=== PATIENT | female | born 1945 | race Caucasian/White ===

== ENCOUNTER → 2019-11-24 14:28 | Outpatient (BNVA) | payer MEDICARE, BC, SELFPAY | PROVIDERS: Family Provider Family Medicine; PCP Family Medicine; Visit Provider Family Medicine | DX: E03.9 Hypothyroidism, unspecified (principal); M54.5 Low back pain; E78.2 Mixed hyperlipidemia; F90.9 Attention-deficit hyperactivity disorder, unspecified type; J30.2 Other seasonal allergic rhinitis; F90.0 Attention-deficit hyperactivity disorder, predominantly inattentive type; M19.90 Unspecified osteoarthritis, unspecified site; G47.00 Insomnia, unspecified | CPT/HCPCS: 84439; 84443; 84481 ==

== ENCOUNTER → 2020-05-19 18:00 | Outpatient (BNVA) | payer MEDICARE, BC, SELFPAY | PROVIDERS: Family Provider Family Medicine; PCP Family Medicine; Visit Provider Family Medicine | DX: Z13.1 Encounter for screening for diabetes mellitus (principal); E03.9 Hypothyroidism, unspecified; E78.2 Mixed hyperlipidemia | CPT/HCPCS: 80053; 80061; 84439; 84443; 84481 ==

== ENCOUNTER → 2020-06-14 16:53 | Outpatient (BNVA) | payer MEDICARE, BC, SELFPAY | PROVIDERS: Family Provider Family Medicine; PCP Family Medicine; Visit Provider Nurse Practitioner Family | DX: M16.12 Unilateral primary osteoarthritis, left hip (principal); M25.552 Pain in left hip | CPT/HCPCS: 73502 ==

== ENCOUNTER → 2020-07-05 17:06 | Outpatient (BNVA) | payer MEDICARE, BC, SELFPAY | PROVIDERS: Family Provider Family Medicine; PCP Family Medicine; Visit Provider Dermatology | DX: D48.9 Neoplasm of uncertain behavior, unspecified (principal) | CPT/HCPCS: 88304 ==

== ENCOUNTER 2020-11-19 13:17 | Emergency (ER) | payer MEDICARE, BC, SELFPAY ==
[2020-11-19 13:38] VITALS: BP 143/74; PULSE 101; RESP 18; TEMP 38.7; O2SAT 96; BMI 32.3
[2020-11-19 15:03] VITALS: BP 115/70; PULSE 91; RESP 16; O2SAT 97
--- NOTE | 2020-11-19 15:23 | XR_ITS ---
WS: [id number] XR chest 2V* [id number] REASON FOR EXAM: fever, SOB FINDINGS: Moderate tortuosity the thoracic aorta without aneurysmal dilatation. Normal heart size. Calcified granulomatous changes in both hemithoraces. No active pulmonary parenchymal or pleural disease. Mild changes of degenerative spondylosis in the mid and lower thoracic spine. XR/XR chest 2V* [id number] IMPRESSION: No acute chest abnormality identified.
[2020-11-19 16:35] LABS: Basophils # 0.1 10^3/uL (0.0-0.1); Basophils % 0.4 %; Hematocrit 35.2 % (37.0-47.0); Hemoglobin 11.2 g/dL (11.5-15.3); Lymphocytes # 1.4 10^3/uL (0.8-4.8); Lymphocytes % 10.8 %; Mean Corpuscular HGB Conc 31.8 g/dL (30.0-36.0); Mean Corpuscular Hemoglobin 28.4 pg (28.0-34.0); Mean Corpuscular Volume 89.1 fL (81-99); Mean Platelet Volume 9.3 fL (7.4-10.4); Monocytes # 0.5 10^3/uL (0.2-0.9); Monocytes % 3.8 %; Neutrophils % 84.1 %; Nucleated Red Blood Cells % 0 %; Platelet Count 480 10^3/cmm (130-400); Red Blood Count 3.95 10^6/uL (4.1-5.3); Red Cell Distribution Width 14.1 % (12.1-15.1); White Blood Count 12.8 10^3/uL (4.0-10.0)
[2020-11-19 16:57] VITALS: BP 112/63; PULSE 91; RESP 16; O2SAT 94
[2020-11-19 17:03] LABS: Procalcitonin 0.15 ng/mL (0-0.5); Thyroid Stimulating Hormone 2.53 uIU/mL (0.27-4.20)
[2020-11-19 17:15] LABS: Alanine Aminotransferase 55 U/L (0-33); Albumin Level 2.5 g/dL (3.5-5.2); Alkaline Phosphatase 191 IU/L (35-105); Anion Gap 17.3 (5-19); Aspartate Amino Transferase 32 U/L (0-32); Blood Urea Nitrogen 10 mg/dL (8-23); Calcium 8.4 mg/dL (8.5-10.5); Carbon Dioxide 22 mmol/L (22-29); Chloride 98 mmol/L (98-107); Creatine Phosphokinase 28 U/L (26-192); Globulin 3.9 g/dL (1.3-4.6); Glucose 131 mg/dL (65-115); Osmolality Calculated 277 mOsm/kg (285-295); Potassium 4.3 mmol/L (3.5-5.1); Sodium 133 mmol/L (136-145); Total Bilirubin 0.5 mg/dL (0.15-1.2); Total Protein 6.4 g/dL (6.6-8.7)
[2020-11-19 17:29] LABS: Erythrocyte Sedimentation Rate 101 mm/hr (0-15)
[2020-11-19 17:47] LABS: Blood Urine Neg (Negative); Glucose Urine UA Norm (Normal); Ketones Urine 2+ (Negative); Nitrate Urine Negative (Negative); Protein Urine Neg (Negative); Specific Gravity, Urine 1.015 (1.005-1.030); Urine Appearance Clear (CLEAR); Urine Color Yellow (Yellow); pH Urine 5 (5-7)
[2020-11-19 17:48] VITALS: BP 114/69; PULSE 86; RESP 14; O2SAT 94
[2020-11-19 17:48] LABS: Add Urine Microscopic? YES; Bilirubin Urine 1+ (Negative); Leukocyte Esterase Urine 2+ (Negative); Urobilinogen Urine 4 mg/dL (Negative); WBC Urine 55-80 /hpf (0-5)
[2020-11-19 17:50] LABS: Squamous Epithelial Cell Urine 0-4 /hpf (0-5)
[2020-11-19 17:51] LABS: Add Urine Culture? Yes; Bacteria Urine 3+ /hpf; Mucus Urine TRACE /hpf
--- NOTE | 2020-11-19 18:05 | ED_ITS ---
HPI - General Adult General: Chief complaint: General Medical Stated complaint: SICK ALL OVER SINCE S YULIYA Time Seen by Provider: 11/19/20 14:55 Source: patient Mode of arrival: ambulatory Limitations: no limitations History of Present Illness: HPI narrative: Patient is a 74-year-old female who presents to the emergency department with complaints of not feeling well for about 3 months. She states that her symptoms started with swelling of her knuckles on both hands, weakness and pain in both lower extremities especially her thighs, difficulty walking because of pain. She has also had intermittent fever. She denies any weight loss. She has some cough. Because her symptoms are not improving she decided to come to the emergency department to be evaluated. Onset (ago): month(s) (3) Associated symptoms: Reports malaise; Deny dyspnea, headache(s), nausea, rash, palpitations or vomiting Review of Systems General: Reports: 10 or more systems reviewed and unremarkable except in HPI and below Const: Reports: fever(s), body aches and malaise; Denies: chills Eyes: Denies: change in vision or blurry vision ENMT: Denies: throat pain, enlarged tonsils, odynophagia, hoarseness, mouth pain or swelling of lips/tongue Card: Denies: palpitations, irregular heart rhythm, edema or swelling of feet/ankles Resp: Denies: dyspnea, productive cough or non-productive cough GI: Denies: abdominal pain, nausea or vomiting : Denies: flank pain, difficulty voiding, dysuria, urinary frequency, urinary urgency or urinary hesitancy Musc: Reports: joint pain and joint swelling; Denies: neck pain, back pain or extremity swelling Skin/Breast: Denies: rash, pruritus or erythema Neuro: Denies: headache(s), numbness in extremities or weakness in extremities Endo: Denies: polyuria, polydipsia or tired all the time PFS ED PFSH: Medical History ADHD Mild ADHD since childhood benefited by SSRI Chronic osteoarthritis Hypothyroidism Insomnia Lumbar back pain Mixed hyperlipidemia Seasonal allergies Surgical History S/P cholecystectomy Family History Family/Other Cancer PROSTATE Diabetes Brother Diabetes Mother Diabetes Social History Smoking and tobacco status: former smoker Alcohol intake: never Desire information about alcohol rehabilitation?: No Desire information about substance/drug rehabilitation?: No History of recent travel: No Sexually active: Yes Current gender identity: Male Female Reproductive History: Spontaneous abortions: No Physical Exam Const: COMMON NORMALS: no acute distress, average body habitus, patient oriented x3, no limitations, healthy appearing, alert and well nourished HENMT: COMMON NORMALS: normocephalic, atraumatic and moist oral mucous membranes HEAD & SCALP: normocephalic and atraumatic Eye: COMMON NORMALS: Equal, round and reactive pupils present, EOMs intact bilaterally, conjunctivae normal and no scleral icterus CONJUNCTIVA: Yes conjunctivae normal PUPIL: Yes Equal, round and reactive pupils present Neck/C-Spine: COMMON NORMALS: full ROM, supple, no meningeal signs, no JVD and No carotid bruits Resp: COMMON NORMALS: normal respiratory effort, No retractions, No use of accessory muscles, clear to auscultation bilaterally and percussion normal AUSCULTATION: clear to auscultation bilaterally PERCUSSION: percussion normal Cardio: COMMON NORMALS: no JVD, regular rate, regular rhythm, S1 normal heart sound present, S2 normal heart sound present, No gallops present (Cardio), No clicks present (Cardio), No murmurs present (Cardio), No rub (Cardio) and Pe ripheral pulses 2+ throughout RATE: regular rate RHYTHM: regular rhythm HEART SOUNDS: S1 normal heart sound present and S2 normal heart sound present PERIPHERAL PULSES: Peripheral pulses 2+ throughout GI: COMMON NORMALS: Normal to inspection, nondistended, normoactive bowel sounds present, Soft to palpation, non-tender, No hepatosplenomegaly present, no masses and no bruits PALPATION: Yes Soft to palpation and Yes No hepatosplenomegaly present Extremity: COMMON NORMALS: normal to inspection, full ROM, capillary refill normal, no calf tenderness and no pedal edema Neuro: COMMON NORMALS: patient oriented x3 SENSORIUM/ORIENTATION: Yes alert MENINGEAL SIGNS: Yes no meningeal signs Skin: COMMON NORMALS: no rashes or lesions noted, no wounds, turgor normal, no jaundice, no petechiae and no mottling GENERAL SKIN EXAM: no rashes or lesions noted and turgor normal Course Reevaluation(s): Reevaluation #1: Discussed her lab and imaging findings with her. Explained to her urinalysis is consistent with a UTI and that may be responsible for some of her symptoms. However I explained to her that her inflammatory markers are significantly elevated and she may have a rheumatologic disease and I would like for her to be evaluated by storage worker especially as she had swelling of her MCPs. She is given a dose of intravenous ceftriaxone in the emergency department and discharged home with a prescription for Augmentin for UTI. She will be contacted to schedule an appointment with a storage worker by the [employer]. She voiced understanding and is in agreement with the plan. Time: 18:06 Vital Signs: Vital signs: Vital Signs Temperature 101.6 F H 11/19/20 13:38 Pulse Rate 86 11/19/20 17:48 Respiratory Rate 14 11/19/20 17:48 Blood Pressure 114/69 11/19/20 17:48 Pulse Oximetry 94 11/19/20 17:48 MDM - General Adult MDM Narrative: Medical decision making narrative: Patient with a 3-month hist ory of feeling unwell. She does have some pain and swelling of her small joints concerning for rheumatologic illness. Her inflammatory markers are significantly elevated. She has a UTI on evaluation in the emergency department. She is discharged home with a prescription for Augmentin call is to follow-up with a storage worker for further evaluation and management. Case management referral done for an appointment with rheumatology. Medical Records: Attestation: I reviewed the patient's medical records. Lab Data: Attestation: I reviewed the patient's lab results. Labs: Lab Results 11/19/20 11/19/20 11/19/20 Range/Units 16:25 16:25 16:25 WBC 12.8 H (4.0-10.0) 10^3/ uL RBC 3.95 L (4.1-5.3) 10^6/u L Hgb 11.2 L (11.5-15.3) g/dL Hct 35.2 L (37.0-47.0) % MCV 89.1 (81-99) fL MCH 28.4 (28.0-34.0) pg MCHC 31.8 (30.0-36.0) g/dL RDW 14.1 (12.1-15.1) % Plt Count 480 H (130-400) 10^3/c mm MPV 9.3 (7.4-10.4) fL Neut % (Auto) 84.1 % Lymph % (Auto) 10.8 % Bullitt % (Auto) 3.8 % Eos % (Auto) 0.0 % Baso % (Auto) 0.4 % Neut # (Auto) 10.80 H (1.8-7.7) 10^3/u L Lymph # (Auto) 1.4 (0.8-4.8) 10^3/u L Bullitt # (Auto) 0.5 (0.2-0.9) 10^3/u L Eos # (Auto) 0.0 (0.0-0.8) 10^3/u L Baso # (Auto) 0.1 (0.0-0.1) 10^3/u L Nucleated RBC % (a uto) 0 % Nucleated RBCs # 0.0 /100WBC ESR 101 H (0-15) mm/hr Sodium 133 L (136-145) mmol/L Potassium 4.3 (3.5-5.1) mmol/L Chloride 98 (98-107) mmol/L Carbon Dioxide 22 (22-29) mmol/L Anion Gap 17.3 (5-19) BUN 10 (8-23) mg/dL Creatinine 0.6 (0.5-0.9) mg/dL GFR Calculation Not Reportable Glucose 131 H (65-115) mg/dL Calculated Osmolal ity 277 L (285-295) mOsm/k g Calcium 8.4 L (8.5-10.5) mg/dL Total Bilirubin 0.5 (0.15-1.2) mg/dL AST 32 (0-32) U/L ALT 55 H (0-33) U/L Alkaline Phosphata se 191 H (35-105) IU/L Creatine Kinase 28 (26-192) U/L C-Reactive Protein 115.0 H (0.0-4.9) mg/L Total Protein 6.4 L (6.6-8.7) g/dL Albumin 2.5 L (3.5-5.2) g/dL Globulin 3.9 (1.3-4.6) g/dL Procalcitonin 0.15 (0-0.5) ng/mL TSH 2.53 (0.27-4.20) uIU/ mL Urine Color (Yellow) Urine Appearance (CLEAR) Urine pH (5-7) Ur Specific Gravit y (1.005-1.030) Urine Protein (Negative) Urine Glucose (UA) (Normal) Urine Ketones (Negative) Urine Blood (Negative) Urine Nitrate (Negative) Urine Bilirubin (Negative) Urine Urobilinogen (Negative) mg/dL Ur Leukocyte Kristin ase (Negative) Urine RBC (0-2) /hpf Urine WBC (0-5) /hpf Ur Squamous Epith Cells (0-5) /hpf Amorphous Sediment Urine Bacteria (NONE) /hpf Urine Mucus /hpf 11/19/20 Range/Units 16:50 WBC (4.0-10.0) 10^3/ uL RBC (4.1-5.3) 10^6/u L Hgb (11.5-15.3) g/dL Hct (37.0-47.0) % MCV (81-99) fL MCH (28.0-34.0) pg MCHC (30.0-36.0) g/dL RDW (12.1-15.1) % Plt Count (130-400) 10^3/c mm MPV (7.4-10.4) fL Neut % (Auto) % Lymph % (Auto) % Bullitt % (Auto) % Eos % (Auto) % Baso % (Auto) % Neut # (Auto) (1.8-7.7) 10^3/u L Lymph # (Auto) (0.8-4.8) 10^3/u L Bullitt # (Auto) (0.2-0.9) 10^3/u L Eos # (Auto) (0.0-0.8) 10^3/u L Baso # (Auto) (0.0-0.1) 10^3/u L Nucleated RBC % (a uto) % Nucleated RBCs # /100WBC ESR (0-15) mm/hr Sodium (136-145) mmol/L Potassium (3.5-5.1) mmol/L Chloride (98-107) mmol/L Carbon Dioxide (22-29) mmol/L Anion Gap (5-19) BUN (8-23) mg/dL Creatinine (0.5-0.9) mg/dL GFR Calculation Glucose (65-115) mg/dL Calculated Osmolal ity (285-295) mOsm/k g Calcium (8.5-10.5) mg/dL Total Bilirubin (0.15-1.2) mg/dL AST (0-32) U/L ALT (0-33) U/L Alkaline Phosphata se (35-105) IU/L Creatine Kinase (26-192) U/L C-Reactive Protein (0.0-4.9) mg/L Total Protein (6.6-8.7) g/dL Albumin (3.5-5.2) g/dL Globulin (1.3-4.6) g/dL Procalcitonin (0-0.5) ng/mL TSH (0.27-4.20) uIU/ mL Urine Color Yellow (Yellow) Urine Appearance Clear (CLEAR) Urine pH 5 (5-7) Ur Specific Gravit y 1.015 (1.005-1.030) Urine Protein Neg (Negative) Urine Glucose (UA) Norm (Normal) Urine Ketones 2+ H (Negative) Urine Blood Neg (Negative) Urine Nitrate Negative (Negative) Urine Bilirubin 1+ H (Negative) Urine Urobilinogen 4 H (Negative) mg/dL Ur Leukocyte Kristin ase 2+ H (Negative) Urine RBC 5-10 H (0-2) /hpf Urine WBC 55-80 H (0-5) /hpf Ur Squamous Epith Cells 0-4 H (0-5) /hpf Amorphous Sediment Not Reportable Urine Bacteria 3+ H (NONE) /hpf Urine Mucus Trace /hpf Imaging Data^: CXR: Attestation: I personally reviewed and interpreted this imaging study as follows: Radiologist's impression: [address] [address] XRay Report Signed Patient: Vivek Leonardo #: [id number] : 7Acct#:[id number] Age/Sex: 74 / FADM Date: 11/19/20 Loc: ERRoom/Bed: Attending Dr: Ordering Provider/Ordering MD: uQoc Reynoso MD, [facility] [place] Date of Service: 11/19/20 Procedure(s): XR chest 2V* [id number] Accession Number(s): [id number] Report Number: [id number] WS: [id number] XR chest 2V* [id number] REASON FOR EXAM: fever, SOB FINDINGS: Moderate tortuosity the thoracic aorta without aneurysmal dilatation. Normal heart size. Calcified granulomatous changes in both hemithoraces. No active pulmonary parenchymal or pleural disease. Mild changes of degenerative spondylosis in the mid and lower thoracic spine. XR/XR chest 2V* [id number] IMPRESSION: No acute chest abnormality identified. Dictated By:Mitch Benjamin Jr, MD Signed By:Mitch Benjamin Jr MDSigned Date/Time:11/19/201558 DD/ 56 Discharge Plan Discharge Patient Disposition: Home Clinical Impression: Inflammatory arthritis UTI (urinary tract infection) Qualifiers: Urinary tract infection type: acute cystitis Hematuria presence: without hematuria Qualified Code(s): N30.00 - Acute cystitis without hematuria Condition: Stable Prescriptions: New Augmentin 500-125 mg tablet 1 tab PO Q12H Qty: 14 RF: 0 Continued multivitamin Tablet 1 tab PO QAM RF: 0 Tylenol Extra Strength 500 mg Tablet 1,000 mg PO BEDTIME RF: 0 ibuprofen 200 mg Tablet 400 mg PO BEDTIME RF: 0 omega-3 fatty acids Capsule 2 cap PO BID RF: 0 Hemp Seed Caps 1 cap PO BID RF: 0 citalopram 40 mg tablet 40 mg PO DAILY@18 RF: 0 simvastatin 10 mg tablet 10 mg PO DAILY@18 RF: 0 alendronate 35 mg tablet 35 mg PO Q7D RF: 0 cyclobenzaprine 5 mg tablet 5 - 10 mg PO TID PRN (Reason: muscle spasm) RF: 0 levothyroxine 100 mcg capsule 100 mcg PO DAILY@07 RF: 0 Discharge Orders: Discharge ED (Routine); Ordered 11/19/20 Ordered By: Quoc Reynoso Referrals: Elyse Delarosa MD [Primary Care Provider] - 1-3 days Discharge Diet: Usual diet Discharge Activity: Increase activity as tolerated Patient Instructions: Urinary Tract Infection in Women (ED) Activity Restrictions/Additional Instructions: Return for any new or worsening symptoms. Follow-up with your primary care provider within 3 days. You will be contacted to schedule an appointment with the storage worker. Take the antibiotic as prescribed and complete the dose. Coding Level of Care Code ED Seam Rubbing Machine Operator for [place] Fwd Exam Comprehensive
[2020-11-19] MEDS: cefTRIAXone 1,000 MG in sodium chloride 0.9% (plus) 50 ML 100 MG IV (18:12)
--- NOTE | 2020-11-22 15:14 | DCPLANNER ---
fleet manager/dispatch had message to schedule a follow up appointment for patient with rheumatology. fleet manager/dispatch called the rheumatology clinic, spoke with Khushi. fleet manager/dispatch was told that patients information would be printed and reviewed. Clinic will call patient with appointment information.
--- NOTE | 2021-01-26 14:58 | DCPLANNER ---
manager corporate strategy called the rheumatoloy clinic to confirm that a follow up appointment had been scheduled for patient. manager corporate strategy spoke with Gwen, telehealth case manager was told that when clinic called patient to schedule an appointment that patient declined appointment.
== END 2020-11-19 18:42 | disposition home or self-care (01) ==
PROVIDERS: Emergency Provider Family Medicine; PCP Family Medicine
DX: M13.80 Other specified arthritis, unspecified site (principal); N30.00 Acute cystitis without hematuria; E78.2 Mixed hyperlipidemia; Z87.891 Personal history of nicotine dependence
CPT/HCPCS: 71046; 80053; 81001; 82550; 84145; 84443; 85025; 85651; 86140; 87086; 96365; 99283; J0696

== ENCOUNTER → 2020-12-01 14:42 | Outpatient (BNVA) | payer MEDICARE, BC, SELFPAY | PROVIDERS: PCP Family Medicine; Visit Provider Family Medicine | DX: N39.0 Urinary tract infection, site not specified (principal); R05 Cough; R61 Generalized hyperhidrosis; E03.9 Hypothyroidism, unspecified; Z87.891 Personal history of nicotine dependence; E78.2 Mixed hyperlipidemia; Z87.440 Personal history of urinary (tract) infections; R74.8 Abnormal levels of other serum enzymes; R79.82 Elevated C-reactive protein (CRP); R70.0 Elevated erythrocyte sedimentation rate | CPT/HCPCS: 80061; 81000; 85025; 86038; 86140; 87077; 87086; 87184 ==

== ENCOUNTER → 2020-12-08 14:43 | Outpatient (BNVA) | payer MEDICARE, BC, SELFPAY | PROVIDERS: PCP Family Medicine; Visit Provider Family Medicine | DX: R79.82 Elevated C-reactive protein (CRP) (principal); R70.0 Elevated erythrocyte sedimentation rate; R61 Generalized hyperhidrosis; R05 Cough; M25.50 Pain in unspecified joint | CPT/HCPCS: 85025; 85651 ==

== ENCOUNTER 2020-12-10 08:11 | Outpatient (CLI) | payer MEDICARE, BC, SELFPAY ==
--- NOTE | 2020-12-10 08:30 | CT_ITS ---
WS: [id number] CT scan of the chest with IV contrast, additional two-dimensional coronal and sagittal reconstruction was performed. 12/10/2020 Clinical Data: R05 - Cough Comparison: PA and lateral chest, 11/19/2020. DLP: 751.[address] scans at [facility] use at least one of these dose optimization techniques: automat ed exposure control; mA and/or kV adjustment per patient size (includes targeted exams where dose is matched to clinical indication); or iterative reconstruction. Findings: No nodules, masses or effusions are seen. No pneumonia or pneumothorax is seen. The heart size is nor mal with no pericardial effusion. The pulmonary arterial system and thoracic aorta demonstrate no abn ormalities or dilatations. There is no axillary or significant mediastinal adenopathy. There is a sma ll hiatal hernia. The upper abdomen demonstrates clips in the gallbladder fossa from a cholecystectomy. Moderate osteoa rthritis of the lower thoracic and upper lumbar vertebral bodies is seen. CT/CT chest w con* [id number] Impression: Negative CT scan of the chest with IV contrast.
[2020-12-10] MEDS: iohexol 300 mg/mL 100 mL Btl IV (09:01)
== END 2020-12-10 08:12 | disposition home or self-care (01) ==
PROVIDERS: PCP Family Medicine; Visit Provider Family Medicine
DX: R05 Cough (principal)
CPT/HCPCS: 71260; Q9967

== ENCOUNTER → 2020-12-16 10:51 | Outpatient (BNVA) | payer MEDICARE, BC, SELFPAY | PROVIDERS: PCP Family Medicine; Visit Provider Emergency Medicine | DX: D64.9 Anemia, unspecified (principal) | CPT/HCPCS: 82270 ==